=== PATIENT | female | born 1995 | race African-American/Black ===

== ENCOUNTER 2018-07-25 16:11 | Emergency (ER) | payer OTHER ==
--- NOTE | 2018-07-25 17:42 | ED Physician Documentation ---
PD HPI ABD PAIN - Stated complaint Stated Complaint: AB PX/SPOTTING - Chief complaint Chief Complaint: Abd Pain - History obtained from History obtained from: Patient - History of Present Illness Timing - onset: Other (She is a 3-year-old Nexplanon in place. For the last month she is been spotting and over the last week has had increasing pelvic cramps which bilateral a little worse today but do resolve with Motrin. 3 years ago she had a similar episode and needed a D&C, she was not at the time.) Review of Systems Constitutional: denies: Fever, Chills GI: denies: Nausea, Vomiting, Diarrhea : denies: Dysuria, Frequency PD PAST MEDICAL HISTORY - Past Medical History Endocrine/Autoimmune: None - Past Surgical History Past Surgical History: Yes - Present Medications Home Medications: Ambulatory Orders Medication Instructions Recorded Confirmed Naproxen [Naprosyn] 500 mg PO BID PRN 07/25/18 07/25/18 RX: Ibuprofen 600 mg PO Q6HR PRN 07/25/18 07/25/18 - Allergies Allergies/Adverse Reactions: Allergies Allergy/AdvReac Type Severity Reaction Status Date / Time amoxicillin Allergy Unknown Verified 03/07/16 13:00 Penicillins Allergy Unknown Verified 03/07/16 13:00 phenazopyridine [From Azo] Allergy Rash Verified 07/25/18 16:21 sulfamethoxazole Allergy Rash Verified 07/25/18 16:21 [From Septra] trimethoprim [From Septra] Allergy Rash Verified 07/25/18 16:21 - Social History Does the pt smoke?: No Smoking Status: Never smoker PD ED PE NORMAL - Vitals Vital signs reviewed: Yes - General General: Alert and oriented X 3, No acute distress - Abdomen Abdomen: Normal bowel sounds, Soft, Non tender - Derm Derm: No rash - Neuro Neuro: Alert and oriented X 3, Normal speech Results - Vitals Vitals: Vital Signs - 24 hr 07/25/18 07/25/18 07/25/18 16:15 18:10 19:14 Temperature 36.8 C 37.1 C 37.1 C Heart Rate 89 62 70 Respiratory 16 16 16 Rate Blood Pressure 127/66 116/73 111/69 O2 Saturation 100 100 100 Oxygen O2 Source Room air - Labs Labs: Laboratory Tests 07/25/18 07/25/18 17:43 17:55 Hgb 14.0 Hct 42.2 Urine Color YELLOW Urine Clarity HAZY Urine pH 6.0 Ur Specific [place] 1.025 Urine Protein NEGATIVE Urine Glucose (UA) NEGATIVE Urine Ketones TRACE Urine Occult Blood LARGE H Urine Nitrite NEGATIVE Urine Bilirubin NEGATIVE Urine Urobilinogen 0.2 (NORMAL) Ur Leukocyte Esterase NEGATIVE Urine RBC None Seen Urine WBC 0-3 Ur Squamous Epith Cells FEW Squamous Urine Bacteria None Seen Urine Mucus Few Strands Ur Microscopic Review INDICATED Urine Culture Comments NOT INDICATED Urine HCG, Qual NEGATIVE - Rads (name of study) pELVIC SONO Radiology: EMP read contemporaneously (NEG) PD MEDICAL DECISION MAKING - ED course ED course: 22-year-old woman with dysfunctional uterine bleeding and pelvic pain in the setting of Nexplanon that is approaching its expiration date. Workup was negative and primary care follow-up was advised. Departure - Departure Disposition: 01 Home, Self Care Clinical Impression: DUB (dysfunctional uterine bleeding) Condition: Good Record reviewed to determine appropriate education?: Yes Instructions: ED Bleed Irregular Vaginal Comments: TALK WITH YOUR DOCTOR ON BASE ABOUT NEXPLANON REMOVAL, IT MAY HELP WITH THE BLEEDING AND HEADACHES. Discharge Date/Time: 07/25/18 19:19
[2018-07-25 17:48] LABS: BILIRUBIN,URINE NEGATIVE (NEGATIVE); GLUCOSE, URINE (UA) NEGATIVE (NEGATIVE); KETONES,URINE (UA) TRACE mg/dL (NEGATIVE); LEUKOCYTE ESTERASE, URINE NEGATIVE (NEGATIVE); NITRITE,URINE NEGATIVE (NEGATIVE); OCCULT BLOOD,URINE LARGE (NEGATIVE); PROTEIN,URINE NEGATIVE (NEGATIVE); UROBILINOGEN,URINE 0.2 (NORMAL) E.U./dL (NORMAL)
[2018-07-25 17:51] LABS: CLARITY,URINE HAZY (CLEAR); HCG UR QUAL NEGATIVE
[2018-07-25 18:08] LABS: BACTERIA,URINE None Seen /HPF (None Seen); MUCUS,URINE Few Strands; RBC,URINE None Seen /HPF (0-5); SQUAMOUS EPITHELIAL CELL,UR FEW Squamous (<= Few)
[2018-07-25] MEDS ORDERED: IBUPROFEN 800 MG TABLET PO STA (18:17)
[2018-07-25 19:15] VITALS: BP 111/69
--- NOTE | 2018-07-25 19:19 | Ultrasound Report ---
Reason: Pelvic pain, spotting Procedure Date: 07/25/2018 Accession Number: [id number] / [id number] Procedure: US - Pelvic w/Transvag+Doppler Comp CPT Code: FULL RESULT: EXAM: PELVIC ULTRASOUND EXAM DATE: 07/25/2018 06:46 PM. CLINICAL HISTORY: Pelvic pain, spotting. COMPARISON: None. TECHNIQUE: Realtime transabdominal pelvic scan performed to identify the uterus and adnexa and as an overview of other pelvic structures, followed by transvaginal scan to provide greater detail of the uterus and adnexa, with static image documentation. FINDINGS: Uterus: 5.5 x 2.6 x 5.5 cm, volume 40 cc. Retroverted position. Normal overall size and echotexture. Masses: None. Endometrium: 4 mm. Normal. Cervix: Unremarkable. Right Ovary: 2.9 x 2.2 x 1.8 cm, volume 6 cc. Normal echotexture and blood flow. Left Ovary: 3.9 x 2.0 x 2.4 cm, volume 9.9 cc. Normal echotexture and blood flow. Free Fluid: None. Other: None. IMPRESSION: Grossly unremarkable exam. RADIA
== END 2018-07-25 19:19 | disposition home or self-care (01) ==
LOC: ED 16:11
DX: N93.8 Other specified abnormal uterine and vaginal bleeding (principal); R10.2 Pelvic and perineal pain; Z79.3 Long term (current) use of hormonal contraceptives
CPT/HCPCS: 36415; 76830; 76856; 81001; 81025; 85014; 85018; 93975; 99283; A9270; 81003; 87086

== ENCOUNTER 2019-04-08 07:32 | Emergency (ER) | payer OTHER ==
[2019-04-08 07:55] VITALS: BP 116/70
[2019-04-08] MEDS ORDERED: IBUPROFEN 600 MG TABLET PO STA (08:08)
[2019-04-08] MEDS ORDERED: ACETAMINOPHEN 325 MG TABLET PO STA (08:08)
--- NOTE | 2019-04-08 08:10 | ED Physician Documentation ---
History of Present Illness - Stated complaint Stated Complaint: ABD PX - Chief complaint Chief Complaint: Abd Pain - Additonal information Additional information: This is a 23-year-old female who presents with left lower quadrant pain. Geno ent states that she has had some intermittent right lower quadrant cramping discomfort for around 1 month, [place] This was reportedly abdominal ultrasound, and the provider stated that if she has continued pain that they were going to do a transvaginal ultrasound, this has not been done yet. This morning she developed 7 out of 10 intermittent crampy discomfort in the left lower quadrant. No nausea, vomiting, diarrhea, fever. No abnormal vaginal discharge, no concern for sexual transmitted infection. No dysuria. Her last period was on 03/22/2019. Review of Systems Constitutional: denies: Fever Cardiac: denies: Chest pain / pressure GI: reports: Abdominal Pain. denies: Nausea : denies: Dysuria Skin: denies: Rash Neurologic: denies: Generalized weakness PD PAST MEDICAL HISTORY - Past Medical History Past Medical History: Yes Cardiovascular: None Respiratory: None Neuro: Migraines Endocrine/Autoimmune: None GI: GERD CARGO MATE: None : None HEENT: None Psych: None Musculoskeletal: None Derm: None - Past Surgical History Past Surgical History: Yes General: Other - Present Medications Home Medications: Ambulatory Orders Medication Instructions Recorded Confirmed Reflux Med 0 mg 04/08/19 - Allergies Allergies/Adverse Reactions: Allergies Allergy/AdvReac Type Severity Reaction Status Date / Time amoxicillin Allergy Unknown Verified 04/08/19 07:55 Penicillins Allergy Unknown Verified 04/08/19 07:55 phenazopyridine [From Azo] Allergy Rash Verified 04/08/19 07:55 sulfamethoxazole Allergy Rash Verified 04/08/19 07:55 [From Septra] trimethoprim [From Septra] Allergy Rash Verified 04/08/19 07:55 - Social History Does the pt smoke?: No Smoking Status: Never smoker Does the pt drink ETOH?: Yes Does the pt have substance abuse?: No - Immunizations Immunizations are current?: Yes - POLST Patient has POLST: No PD ED PE NORMAL - Vitals Vital signs reviewed: Yes - General General: Alert and oriented X 3, No acute distress - HEENT HEENT: PERRL - Neck Neck: Supple, no meningeal sign - Cardiac Cardiac: RRR - Respiratory Respiratory: No respiratory distress, Clear bilaterally - Abdomen Abdomen: Soft, Non distended, Other (Slightly tender suprapubically in the left lower quadrant. No right lower quadrant abdominal pain. Remainder the abdomen is nontender) - Derm Derm: Warm and dry - Extremities Extremities: No deformity - Neuro Neuro: Alert and oriented X 3 - Psych Psych: Normal mood, Normal affect Results - Vitals Vitals: Vital Signs - 24 hr 04/08/19 07:43 Temperature 36.9 C Heart Rate 90 Respiratory 16 Rate Blood Pressure 116/70 O2 Saturation 100 Oxygen O2 Source Room air - Labs Labs: Laboratory Tests 04/08/19 04/08/19 04/08/19 08:18 08:18 09:10 WBC 3.7 L RBC 4.06 L Hgb 12.8 Hct 40.4 MCV 99.5 H MCH 31.5 H MCHC 31.7 L RDW 12.4 Plt Count 237 MPV 9.9 Neut # (Auto) 1.5 Lymph # (Auto) 1.8 [place] # (Auto) 0.3 Eos # (Auto) 0.1 Baso # (Auto) 0.0 Absolute Nucleated RBC 0.00 Nucleated RBC % 0.0 Sodium 139 Potassium 3.3 L Chloride 102 Carbon Dioxide 29 Anion Gap 8.0 BUN 7 Creatinine 0.9 Estimated GFR (MDRD) 94 Glucose 93 Calcium 9.2 Total Bilirubin 0.6 AST 18 ALT 10 Alkaline Phosphatase 49 Total Protein 6.8 Albumin 3.8 Globulin 3.0 Albumin/Globulin Ratio 1.3 Lipase 31 Urine Color YELLOW Urine Clarity CLEAR Urine pH 6.0 Ur Specific [place] 1.010 Urine Protein NEGATIVE Urine Glucose (UA) NEGATIVE Urine Ketones NEGATIVE Urine Occult Blood NEGATIVE Urine Nitrite NEGATIVE Urine Bilirubin NEGATIVE Urine Urobilinogen 0.2 (NORMAL) Ur Leukocyte Esterase NEGATIVE Ur Microscopic Review NOT INDICATED Urine Culture Comments NOT INDICATED Urine HCG, Qual NEGATIVE - Rads (name of study) US pevlic w doppler Radiology: Other (Question of arcuate or bicornuate uterus, no other abnormality seen of the uterus or adnexa, good flow bilaterally) PD MEDICAL DECISION MAKING - ED course Complexity details: considered differential (Cystitis, UTI, STI, PID/TOA, ovarian torsion, intestinal cramping, appendicitis) ED course: On examination patient is well-appearing, vital signs are unremarkable. She has some mild tenderness in the left lower quadrant remainder of her abdomen is nontender and specifically no right lower quadrant tenderness whatsoever, making appendicitis highly unlikely. Patient was given Tylenol ibuprofen for pain, labs are drawn, and ultrasound was ordered to assess for ovarian pathology. She denies concern for sexual transmitted infection, has no vaginal itching/burning, or dysuria, making sexual drive and infection unlikely, but GC chlamydia trichomonas urine PCR was sent as well. Labs show a very mild leukopenia which is likely within normal limits for patient, otherwise unremarkable. Urine is negative for infection and hCG is negative. Ultrasound shows no signs of ovarian torsion or acute pathology to explain patient's discomfort. On repeat examination she is feeling better and her abdomen is benign. I discussed pelvic exam with the patient, she prefer to follow-up with her PCP I think is reasonable given she has absolutely no vaginal symptoms and risk of STI/PID extremely low especially given her ultrasound results. I discussed return precautions with the patient, and the need for close follow-up. Also discussed that if her pain shift so she is having worsening pain in the right lower quadrant she is to return for a recheck. I also did discuss the finding of potential bicornate uterus on which she can follow-up with her primary care provider and [employer], I think this is unrelated to her discomfort today. Patient agreed and was discharged home Departure - Departure Disposition: 01 Home, Self Care Clinical Impression: Abdominal pain Qualifiers: Abdominal location: left lower quadrant Qualified Code(s): R10.32 - Left lower quadrant pain Condition: Good Instructions: ED Abdominal Pain Unkn Cause Follow-Up: EL FISHER MD [Primary Care Provider] - Within 1 week Comments: You were seen today for pain in the left lower side of your abdomen. Your ultrasound did not show obvious problems, and your labs are reassuring. We do not see signs of a urinary tract infection today. Your white blood cell count was a tiny bit low at 3.7, this is probably unrelated to your pain but can be rechecked with your primary care provider. If you are having new or worsening symptoms such as increasing pain, repeated episodes of vomiting, fever, or other concerning symptoms please return to the emergency department. It is okay to take Tylenol and ibuprofen for pain.
[2019-04-08 08:34] LABS: BASOPHILS % (AUTO) 1.1 %; EOSINOPHILS # (AUTO) 0.1 10^3/uL (0.0-0.7); EOSINOPHILS % (AUTO) 1.4 %; HGB - HEMOGLOBIN 12.8 g/dL (12.0-16.0); LYMPHOCYTES # (AUTO) 1.8 10^3/uL (1.5-3.5); LYMPHOCYTES % (AUTO) 48.6 %; MEAN CORPUSCULAR HEMOGLOBIN 31.5 pg (27.0-31.0); MEAN CORPUSCULAR HGB CONC 31.7 g/dL (32.0-36.0); MEAN CORPUSCULAR VOLUME 99.5 fL (81.0-99.0); MEAN PLATELET VOLUME 9.9 fL (7.9-10.8); MONOCYTES # (AUTO) 0.3 10^3/uL (0.0-1.0); MONOCYTES % (AUTO) 8.4 %; NEUTROPHILS # (AUTO) 1.5 10^3/uL (1.5-6.6); NEUTROPHILS % (AUTO) 40.2 %; PLT - PLATELET COUNT 237 10^3/uL (130-450); RED BLOOD COUNT 4.06 10^6/uL (4.20-5.40); RED CELL DISTRIBUTION WIDTH 12.4 % (12.0-15.0); WHITE BLOOD COUNT 3.7 x10^3/uL (4.8-10.8)
[2019-04-08 08:57] LABS: ALBUMIN 3.8 g/dL (3.2-5.5); ALBUMIN/GLOBULIN RATIO 1.3 (1.0-2.2); BILIRUBIN,TOTAL 0.6 mg/dL (0.2-1.0); CALCIUM 9.2 mg/dL (8.5-10.3); CREATININE 0.9 mg/dL (0.4-1.0); TOTAL PROTEIN 6.8 g/dL (6.7-8.2)
[2019-04-08 09:29] LABS: BILIRUBIN,URINE NEGATIVE (NEGATIVE); GLUCOSE, URINE (UA) NEGATIVE (NEGATIVE); KETONES,URINE (UA) NEGATIVE (NEGATIVE); LEUKOCYTE ESTERASE, URINE NEGATIVE (NEGATIVE); NITRITE,URINE NEGATIVE (NEGATIVE); OCCULT BLOOD,URINE NEGATIVE (NEGATIVE); PROTEIN,URINE NEGATIVE (NEGATIVE); UROBILINOGEN,URINE 0.2 (NORMAL) E.U./dL (NORMAL)
[2019-04-08 09:32] LABS: CLARITY,URINE CLEAR (CLEAR)
[2019-04-08 09:33] LABS: HCG UR QUAL NEGATIVE
--- NOTE | 2019-04-08 10:51 | Ultrasound Report ---
Reason: Please assess for ovarian pathology - LLQ pain Procedure Date: 04/08/2019 Accession Number: [id number] / [id number] Procedure: US - Pelvic w/Doppler Limited CPT Code: Final Report FULL RESULT: EXAM: PELVIC ULTRASOUND EXAM DATE: 04/08/2019 10:22 AM. CLINICAL HISTORY: Please assess for ovarian pathology in a 23-year-old female with left lower quadrant pain today and right lower quadrant pain for 2 months. COMPARISON: PEL NON OB W/TV DOP 07/25/2018 6:29 PM. TECHNIQUE: Realtime transabdominal pelvic scan performed on an emergent basis, to identify the uterus and adnexa and as an overview of other pelvic structures, followed by transvaginal scan to provide greater detail of the uterus and adnexa, with static image documentation. FINDINGS: Uterus: 7.5 x 2.3 x 6.1 cm, volume 54 cc. Anteverted position. Normal overall size and echotexture. Question of arcuate versus bicornuate uterus. Masses: None. Endometrium: 8.4 mm. Normal. No mass, cyst, polyp or abnormal vascularity. Tiny amount of echo-free fluid in the lower endometrial segment. Cervix: Tiny amount of fluid in the cervix. Otherwise unremarkable. Right Ovary: 3.5 x 2.1 x 2.1 cm, volume 7.9 cc. Normal echotexture and blood flow. Small benign appearing age-appropriate follicle cyst. Left Ovary: 2.7 x 2.8 x 2.3 cm, volume 9.3 cc. Normal echotexture and blood flow. Normal arterial and venous blood flow both ovaries. Free Fluid: Small amount of echo-free fluid bilaterally, likely physiologic. Other: None. IMPRESSION: Unremarkable pelvic ultrasound for age and menstrual status. No ovarian pathology or other demonstrated cause for lower quadrant pain. Question of arcuate versus bicornate uterus, a normal variant. RADIA
[2019-04-08 22:22] LABS: TRICHOMONAS VAGINALIS DNA NEGATIVE (NEGATIVE)
== END 2019-04-08 11:23 | disposition home or self-care (01) ==
LOC: ED 07:32
DX: R10.32 Left lower quadrant pain (principal); D72.819 Decreased white blood cell count, unspecified
CPT/HCPCS: 36415; 76856; 80053; 81003; 81025; 83690; 85025; 87491; 87591; 87661; 93976; 99284; A9270; 81001; 87086

== ENCOUNTER 2019-05-23 20:51 | Emergency (ER) | payer OTHER ==
[2019-05-23] MEDS ORDERED: SODIUM CHLORIDE 0.9% 1,000 ML IV ONE (22:19)
[2019-05-23 23:08] LABS: BASOPHILS % (AUTO) 0.2 %; EOSINOPHILS % (AUTO) 0.2 %; HGB - HEMOGLOBIN 13.1 g/dL (12.0-16.0); LYMPHOCYTES # (AUTO) 0.3 10^3/uL (1.5-3.5); LYMPHOCYTES % (AUTO) 4.3 %; MEAN CORPUSCULAR HGB CONC 31.1 g/dL (32.0-36.0); MEAN CORPUSCULAR VOLUME 99.8 fL (81.0-99.0); MEAN PLATELET VOLUME 9.9 fL (7.9-10.8); MONOCYTES # (AUTO) 0.3 10^3/uL (0.0-1.0); MONOCYTES % (AUTO) 4.1 %; NEUTROPHILS % (AUTO) 90.9 %; PLT - PLATELET COUNT 240 10^3/uL (130-450); RED BLOOD COUNT 4.22 10^6/uL (4.20-5.40); RED CELL DISTRIBUTION WIDTH 12.8 % (12.0-15.0); WHITE BLOOD COUNT 6.6 x10^3/uL (4.8-10.8)
[2019-05-23 23:23] LABS: ALBUMIN 4.2 g/dL (3.2-5.5); ALBUMIN/GLOBULIN RATIO 1.4 (1.0-2.2); CALCIUM 8.9 mg/dL (8.5-10.3); CREATININE 0.8 mg/dL (0.4-1.0); TOTAL PROTEIN 7.3 g/dL (6.7-8.2)
--- NOTE | 2019-05-23 23:32 | ED Physician Documentation ---
PD HPI NVD - Stated complaint Stated Complaint: N/V/D, BODY ACHES - Chief complaint Chief Complaint: Abd Pain - History obtained from History obtained from: Patient - History of Present Illness Timing - onset: Enter time (10:00), Today Timing - details: Abrupt onset Pain level now: 5 Associated symptoms: No: Fever, Abdominal pain Improved by: Other (nothing) Worsened by: Other (no exacerbating factors) Similar symptoms before: Has not had sx before Recently seen: Not recently seen - Additonal information Additional information: c/o nausea, vomiting, diarrhea, and generalized myalgias since 10 AM this morning Review of Systems Constitutional: reports: Myalgias. denies: Fever, Chills, Sweats Throat: denies: Sore throat Cardiac: reports: Reviewed and negative Respiratory: reports: Reviewed and negative GI: reports: Nausea, Vomiting, Diarrhea. denies: Abdominal Pain : denies: Dysuria, Frequency, Now EGA PD PAST MEDICAL HISTORY - Past Medical History Cardiovascular: None Respiratory: None Neuro: Migraines Endocrine/Autoimmune: None GI: GERD FLORAL SPECIALIST: None : None HEENT: None Psych: None Musculoskeletal: None Derm: None - Past Surgical History Past Surgical History: Yes General: Other - Present Medications Home Medications: Ambulatory Orders Medication Instructions Recorded Confirmed Butalb/Acetaminophen/Caffeine 1 each PO 05/23/19 [Fioricet 50-300-40 mg Capsule] Ibuprofen [Ibu] 400 mg PO QID 05/23/19 05/23/19 Diphenoxylate/Atropine [Lomotil] 1 each PO QID PRN #14 tablet 05/24/19 Ondansetron Odt [Zofran] 4 mg TL Q6H PRN #14 tablet 05/24/19 - Allergies Allergies/Adverse Reactions: Allergies Allergy/AdvReac Type Severity Reaction Status Date / Time amoxicillin Allergy Unknown Verified 05/23/19 20:57 Penicillins Allergy Unknown Verified 05/23/19 20:57 phenazopyridine [From Azo] Allergy Rash Verified 05/23/19 20:57 sulfamethoxazole Allergy Rash Verified 05/23/19 20:57 [From Decra] trimethoprim [From ] Allergy Rash Verified 05/23/19 20:57 - Social History Does the pt smoke?: No Smoking Status: Never smoker Does the pt drink ETOH?: Yes Does the pt have substance abuse?: No - Immunizations Immunizations are current?: Yes - POLST Patient has POLST: No PD ED PE NORMAL - Vitals Vital signs reviewed: Yes - General General: Alert and oriented X 3, No acute distress, Well developed/nourished - HEENT HEENT: Moist mucous membranes - Cardiac Cardiac: RRR, No murmur - Respiratory Respiratory: No respiratory distress, Clear bilaterally - Abdomen Abdomen: Normal bowel sounds, Soft, Non tender, Non distended - Back Back: No CVA TTP Results - Vitals Vitals: Vital Signs - 24 hr 05/23/19 05/23/19 05/24/19 20:54 23:33 00:21 Temperature 37.1 C Heart Rate 123 H 98 86 Respiratory 18 16 16 Rate Blood Pressure 107/63 107/58 L 107/58 L O2 Saturation 100 100 100 Oxygen O2 Source Room air - Labs Labs: Laboratory Tests 05/23/19 05/23/19 05/23/19 22:36 23:00 23:00 WBC 6.6 RBC 4.22 Hgb 13.1 Hct 42.1 MCV 99.8 H MCH 31.0 MCHC 31.1 L RDW 12.8 Plt Count 240 MPV 9.9 Neut # (Auto) 6.0 Lymph # (Auto) 0.3 L [place] # (Auto) 0.3 Eos # (Auto) 0.0 Baso # (Auto) 0.0 Absolute Nucleated RBC 0.00 Nucleated RBC % 0.0 Sodium 138 Potassium 4.1 Chloride 105 Carbon Dioxide 24 Anion Gap 9.0 BUN 11 Creatinine 0.8 Estimated GFR (MDRD) 108 Glucose 106 H Calcium 8.9 Total Bilirubin 1.0 AST 22 ALT 17 Alkaline Phosphatase 36 L Total Protein 7.3 Albumin 4.2 Globulin 3.1 Albumin/Globulin Ratio 1.4 Lipase 27 Urine Color Urine Clarity Urine pH Ur Specific [place] Urine Protein Urine Glucose (UA) Urine Ketones Urine Occult Blood Urine Nitrite Urine Bilirubin Urine Urobilinogen Ur Leukocyte Esterase Ur Microscopic Review Urine Culture Comments Urine HCG, Qual Influenza A (Rapid) Negative Influenza B (Rapid) Negative 05/24/19 00:25 WBC RBC Hgb Hct MCV MCH MCHC RDW Plt Count MPV Neut # (Auto) Lymph # (Auto) [place] # (Auto) Eos # (Auto) Baso # (Auto) Absolute Nucleated RBC Nucleated RBC % Sodium Potassium Chloride Carbon Dioxide Anion Gap BUN Creatinine Estimated GFR (MDRD) Glucose Calcium Total Bilirubin AST ALT Alkaline Phosphatase Total Protein Albumin Globulin Albumin/Globulin Ratio Lipase Urine Color YELLOW Urine Clarity CLEAR Urine pH 6.5 Ur Specific [place] 1.025 Urine Protein NEGATIVE Urine Glucose (UA) NEGATIVE Urine Ketones >=80 H Urine Occult Blood NEGATIVE Urine Nitrite NEGATIVE Urine Bilirubin NEGATIVE Urine Urobilinogen 0.2 (NORMAL) Ur Leukocyte Esterase NEGATIVE Ur Microscopic Review NOT INDICATED Urine Culture Comments NOT INDICATED Urine HCG, Qual NEGATIVE Influenza A (Rapid) Influenza B (Rapid) PD MEDICAL DECISION MAKING - ED course Complexity details: reviewed results, re-evaluated patient, considered differential, d/w patient Departure - Departure Disposition: 01 Home, Self Care Clinical Impression: Vomiting, Diarrhea Condition: Good Instructions: ED Diet Vomiting Diarrhea, ED Vomiting Diarrhea Nonspecific Ad Prescriptions: Diphenoxylate/Atropine [Lomotil] 1 each PO QID PRN #14 tablet PRN Reason: Diarrhea Ondansetron Odt [Zofran] 4 mg TL Q6H PRN #14 tablet PRN Reason: Nausea / Vomiting Discharge Date/Time: 05/24/19 00:58
[2019-05-23 23:35] VITALS: BP 107/58
[2019-05-23] MEDS ORDERED: ONDANSETRON 4 MG/2 ML VIAL IVP STA (23:44)
[2019-05-23] MEDS ORDERED: KETOROLAC 30 MG/ML VIAL IVP STA (23:44)
[2019-05-23] MEDS ORDERED: DIPHENOX/ATROPINE 2.5/0.025 MG TABLET PO STA (23:45)
[2019-05-24 00:30] LABS: BILIRUBIN,URINE NEGATIVE (NEGATIVE); GLUCOSE, URINE (UA) NEGATIVE (NEGATIVE); KETONES,URINE (UA) >=80 mg/dL (NEGATIVE); LEUKOCYTE ESTERASE, URINE NEGATIVE (NEGATIVE); NITRITE,URINE NEGATIVE (NEGATIVE); OCCULT BLOOD,URINE NEGATIVE (NEGATIVE); PH,URINE 6.5 PH (5.0-7.5); PROTEIN,URINE NEGATIVE (NEGATIVE); UROBILINOGEN,URINE 0.2 (NORMAL) E.U./dL (NORMAL)
[2019-05-24 00:31] LABS: CLARITY,URINE CLEAR (CLEAR)
[2019-05-24 00:33] LABS: HCG UR QUAL NEGATIVE
== END 2019-05-24 00:58 | disposition home or self-care (01) ==
LOC: ED 20:51
DX: R11.10 Vomiting, unspecified (principal); R19.7 Diarrhea, unspecified
CPT/HCPCS: 36415; 80053; 81003; 81025; 83690; 85025; 87275; 87276; 96361; 96374; 96375; 99283; 99284; A9270; 81001; 87086